=== PATIENT | male | born 1955 | race Caucasian/White ===

== ENCOUNTER → 2017-06-08 | Outpatient (CLI) | payer OTHER | END | disposition home or self-care (01) | LOC: CDC 08:20 | DX: K40.91 Unilateral inguinal hernia, without obstruction or gangrene, recurrent (principal); R94.31 Abnormal electrocardiogram [ECG] [EKG] | CPT/HCPCS: 93000 ==

== ENCOUNTER 2017-06-16 07:18 | Day surgery (SDC) | payer OTHER ==
[~2017-06-16] VITALS: Ht 170.2 cm; Wt 57.0 kg
[~2017-06-16 07:18] MED LIST: LO-DOSE ASPIRIN81 M2 PO; ZESTORETIC 20-1 EAC2 PO; ZOCOR40 MG PO
[2017-06-16 07:50] VITALS: BP 119/80
[2017-06-16 08:10] LABS: ANION GAP 7 MEQ/L (2-14); CHLORIDE 99 MEQ/L (99-109); POTASSIUM 4.7 MEQ/L (3.7-5.4); SAMPLE HEMOLYSIS CHECK 1; SAMPLE ICTERIC CHECK 0; SAMPLE LIPEMIA CHECK 0; SODIUM 137 MEQ/L (136-147)
[2017-06-16 08:16] LABS: GFR ESTIMATE (CALCULATED) > 59 mL/min/; GLUCOSE 93 mg/dL (70-99); UREA NITROGEN (BUN) 18 mg/dL (9-23)
[2017-06-16] MEDS ORDERED: MOTRIN600 MG PO (10:48)
[2017-06-16] MEDS ORDERED: NORCO 5/3251 TABLET PO (10:48)
[2017-06-16 11:55] VITALS: BP 134/81
[2017-06-16 12:20] VITALS: BP 133/83
== END 2017-06-16 12:35 | disposition home or self-care (01) ==
LOC: SDC 07:18
PROVIDERS: Surgery
PROC: 0YU50JZ Supplement Right Inguinal Region with Synthetic Substitute, Open Approach (ICD-10-PCS; principal; 2017-06-16)
DX: K40.91 Unilateral inguinal hernia, without obstruction or gangrene, recurrent (principal); I10 Essential (primary) hypertension; E78.4 Other hyperlipidemia; J44.9 Chronic obstructive pulmonary disease, unspecified; I45.10 Unspecified right bundle-branch block; Z79.82 Long term (current) use of aspirin; F17.210 Nicotine dependence, cigarettes, uncomplicated; Z88.0 Allergy status to penicillin; Z82.49 Family history of ischemic heart disease and other diseases of the circulatory system; Z83.6 Family history of other diseases of the respiratory system
CPT/HCPCS: 80048; 94640; C1781; J0690; J1885; S0020